=== PATIENT | female | born 1960 | race African-American/Black ===

== ENCOUNTER 2021-09-15 06:50 | Inpatient (IN) ==
[2021-09-12 12:00] LABS: Basophils % 0.5 % (0.0-0.8); Eosinophils # 0.1 10*3/uL (0.0-0.87); Eosinophils % 1.2 % (0.00-10.9); Hematocrit 38.7 VOL% (35.7-47.0); Hemoglobin 11.8 GM/DL (12.0-16.0); Immature Granulocytes % 0.6 %; Immature Granulocytes Absolute 0.05 #; Lymphocytes # 2.9 10*3/uL (1.4-4.0); Lymphocytes % 35.2 % (21.3-54.2); Mean Corpuscular HGB Conc 30.5 GM/DL (32-36); Mean Corpuscular Volume 92.4 FL (87-102); Mean Platelet Volume 11.9 FL (9.6-12.0); Monocytes # 0.5 10*3/uL (0.11-0.8); Monocytes % 5.6 % (1.7-12.7); Neutrophils % 56.9 % (38.7-73.9); Platelet Count 201 T/CUMM (130-400); Red Blood Count 4.19 MC/CUMM (3.8-5.5); Red Cell Distribution Width 13.3 % (9.3-17.3); White Blood Count 8.4 T/CUMM (4-12)
[2021-09-12 12:09] LABS: Albumin 3.7 G/DL (3.4-5.0); Bilirubin,Total 0.6 MG/DL (0.20-1.00); Potassium 3.4 MMOL/L (3.5-5.1); Total Protein 7.4 G/DL (6.4-8.2)
[2021-09-12 12:15] LABS: INR 1.3; PT Patient Result 13.8 SECS (10.5-12.0); Partial Thromboplastin Time 37.9 SECS (23.7-32.9)
[~2021-09-15 06:50] MED LIST: LACTATED RINGERS 1,000 ML IV SCH
[2021-09-15] MEDS ORDERED: FAMOTIDINE 20 MG TABLET PO ONE (07:17)
[2021-09-15] MEDS ORDERED: DIAZEPAM 5 MG TABLET PO ONE (07:17)
[2021-09-15] MEDS ORDERED: HEPARIN/NACL 0.9% 2 UNITS/ML 1,000 UNIT/500 ML BAG IV ONE (07:46)
[2021-09-15] MEDS ORDERED: propofoL 200 MG/20 ML VIAL IV ONE (07:51)
[2021-09-15] MEDS ORDERED: ROCURONIUM 50 MG/5 ML VIAL IV ONE ×2 (07:51→11:17)
[2021-09-15] MEDS ORDERED: DESFLURANE 1 UNIT/15 MINUTE INH ONE (07:51)
[2021-09-15] MEDS ORDERED: fentaNYL 100 MCG/2 ML VIAL ONE ×2 (07:51→09:26)
[2021-09-15] MEDS ORDERED: LIDOCAINE 2% 5 ML VIAL ONE (07:51)
[2021-09-15] MEDS ORDERED: ONDANSETRON 4 MG/2 ML VIAL ONE (07:51)
[2021-09-15] MEDS ORDERED: MIDAZOLAM 2 MG/2 ML VIAL ONE (07:51)
[2021-09-15 07:54] LABS: PT Patient Result 10.7 SECS (10.5-12.0)
[2021-09-15] MEDS ORDERED: DEXAMETHASONE 4 MG/1 ML VIAL ONE (08:11)
[2021-09-15] MEDS ORDERED: BUPIVACAINE MPF 0.5% /EPI 30 ML VIAL ONE (08:11)
[2021-09-15] MEDS ORDERED: HYDROCORTISONE 100 MG VIAL ONE (08:42)
[2021-09-15] MEDS ORDERED: GLYCOPYRROLATE 0.4 MG/2 ML VIAL ONE (09:29)
[2021-09-15] MEDS ORDERED: NEOSTIGMINE 10 MG/10 ML VIAL ONE (09:29)
[2021-09-15] MEDS ORDERED: SODIUM CHLORIDE 0.9% 1,000 ML IV PRN ×2 (10:39→12:32)
[2021-09-15] MEDS ORDERED: CALCIUM CHLORIDE 1,000 MG/10 ML VIAL IV ONE ×2 (10:45→11:02)
[2021-09-15] MEDS ORDERED: MICROFIBRILLAR COLLAGEN POWDER 1 GM CAN TOP ONE (10:49)
[2021-09-15] MEDS ORDERED: PHENYLEPHRINE 1 MG/10 ML SYRINGE IV ONE (11:01)
[2021-09-15] MEDS ORDERED: FUROSEMIDE 40 MG TABLET PO PRN (11:36)
[2021-09-15] MEDS ORDERED: METHOCARBAMOL 500 MG TABLET PO PRN (11:36)
[2021-09-15 12:04] LABS: Basophils # 0.1 10*3/uL (0.0-0.2); Basophils % 0.3 % (0.0-0.8); Eosinophils % 0.1 % (0.00-10.9); Hematocrit 32.9 VOL% (35.7-47.0); Hemoglobin 10.7 GM/DL (12.0-16.0); Immature Granulocytes % 0.8 %; Immature Granulocytes Absolute 0.18 #; Lymphocytes # 1.3 10*3/uL (1.4-4.0); Mean Corpuscular HGB Conc 32.5 GM/DL (32-36); Mean Corpuscular Volume 92.9 FL (87-102); Mean Platelet Volume 10.9 FL (9.6-12.0); Monocytes # 0.4 10*3/uL (0.11-0.8); Monocytes % 1.9 % (1.7-12.7); Neutrophils % 90.9 % (38.7-73.9); Platelet Count 132 T/CUMM (130-400); Red Blood Count 3.54 MC/CUMM (3.8-5.5); Red Cell Distribution Width 13.2 % (9.3-17.3); White Blood Count 22.5 T/CUMM (4-12)
[2021-09-15] MEDS: HYDROmorphone 1 MG/1 ML SYRINGE IV PRN ×5 (12:12→22:29)
[2021-09-15 12:16] LABS: Calcium 9.4 MG/DL (8.5-10.1); Osmolality,Calculated 301.4 MOS/KG (273-304); Potassium 3.8 MMOL/L (3.5-5.1)
[2021-09-15] MEDS ORDERED: PHENYLEPHRINE DRIP 40 MG/250 ML PREMIX IV PRN (12:20)
[2021-09-15] MEDS ORDERED: PHENYLEPHRINE DRIP 40 MG/250 ML PREMIX IV ONE (12:23)
[2021-09-15 12:43] LABS: Band Neutrophils 4 % (0-10); Lymphocytes 3 % (20-55); Total Cells Counted 100
[2021-09-15 12:44] LABS: Acanthocytes Few
[2021-09-15 12:45] LABS: Platelet Estimate Normal
[2021-09-15] MEDS ORDERED: DEXT 5% NACL 0.45% KCL 10 MEQ 10 MEQ/1,000 ML BAG IV SCH (13:00)
[2021-09-15 15:52] LABS: Hyaline Casts,Urine 5 /LPF (0-3); Mucus,Urine Occasional /LPF (Occasional); RBC,Urine 5 /HPF (0-4); Squamous Epithelial Cell,Urine Occasional /HPF (0-10)
[2021-09-15 15:55] LABS: Bilirubin,Urine Negative (Negative); Glucose,Urine (UA) 100 mg/dL (Negative); Ketones,Urine Negative (Negative); Nitrite,Urine Negative (Negative); Protein,Urine 100 mg/dL (Negative); Urine Appearance Clear (Clear); Urine Color Yellow (Yellow); Urine Specific Gravity 1.025 (1.001-1.035)
[2021-09-15 15:56] LABS: Blood, Urine Trace mg/dL (Negative); Urine Urobilinogen 0.2 eU/dL (<2.0)
[2021-09-15 17:58] LABS: Hemoglobin 15.3 GM/DL (12.0-16.0)
[2021-09-15] MEDS: AMITRIPTYLINE 50 MG TABLET PO SCH (20:48)
[2021-09-15] MEDS: BUDESONIDE/FORMOTEROL 80-4.5 INHALER 6.9 GM INH SCH (20:49)
[2021-09-15] MEDS ORDERED: GLUCAGON 1 MG VIAL IM PRN (21:18)
[2021-09-15] MEDS ORDERED: DEXTROSE 10% 250 ML BAG IV PRN (21:20)
[2021-09-15] MEDS: SODIUM CHLORIDE 0.45% 1,000 ML IV SCH (21:30)
[2021-09-15] MEDS: INSULIN REGULAR 100 UNIT/ML SUBCUT SCH (23:41)
[2021-09-16] MEDS: HYDROmorphone 1 MG/1 ML SYRINGE IV PRN ×4 (02:52→09:40)
[2021-09-16 05:13] LABS: Basophils % 0.2 % (0.0-0.8); Hematocrit 38.7 VOL% (35.7-47.0); Hemoglobin 12.8 GM/DL (12.0-16.0); Immature Granulocytes % 1.1 %; Immature Granulocytes Absolute 0.23 #; Lymphocytes # 2.3 10*3/uL (1.4-4.0); Lymphocytes % 11.1 % (21.3-54.2); Mean Corpuscular HGB Conc 33.1 GM/DL (32-36); Mean Corpuscular Volume 90.4 FL (87-102); Mean Platelet Volume 10.9 FL (9.6-12.0); Monocytes # 1.5 10*3/uL (0.11-0.8); Monocytes % 7.3 % (1.7-12.7); Neutrophils % 80.3 % (38.7-73.9); Platelet Count 119 T/CUMM (130-400); Red Blood Count 4.28 MC/CUMM (3.8-5.5); Red Cell Distribution Width 14.4 % (9.3-17.3)
[2021-09-16 05:20] LABS: PT Patient Result 10.6 SECS (10.5-12.0)
[2021-09-16 05:25] LABS: Calcium 8.3 MG/DL (8.5-10.1); Osmolality,Calculated 278.5 MOS/KG (273-304)
[2021-09-16 05:34] LABS: Lymphocytes 6 % (20-55); Total Cells Counted 100
[2021-09-16] MEDS: INSULIN REGULAR 100 UNIT/ML SUBCUT SCH ×3 (06:28→18:10)
[2021-09-16] MEDS: SODIUM CHLORIDE 0.45% 1,000 ML IV SCH ×2 (06:49→17:38)
[2021-09-16] MEDS ORDERED: GLUCAGON 1 MG VIAL IM PRN (07:08)
[2021-09-16] MEDS ORDERED: DEXTROSE 50% 25 GM/50 ML VIAL IV PRN (07:08)
[2021-09-16] MEDS ORDERED: lisinopriL 10 MG TABLET PO SCH (09:00)
[2021-09-16] MEDS: predniSONE 10 MG TABLET PO SCH (09:32)
[2021-09-16] MEDS: DOCUSATE SODIUM 100 MG CAPSULE PO SCH (09:32)
[2021-09-16] MEDS: BUDESONIDE/FORMOTEROL 80-4.5 INHALER 6.9 GM INH SCH ×2 (09:35→20:45)
[2021-09-16] MEDS ORDERED: NALOXONE 0.4 MG/ML VIAL IV PRN (09:58)
[2021-09-16] MEDS: HEPARIN DRIP 25,000 UNITS/500 ML PREMIX IV SCH (10:03)
[2021-09-16] MEDS: HYDROmorphone PCA 30 MG/30 ML SYRINGE IV SCH (10:58)
[2021-09-16] MEDS: AMITRIPTYLINE 50 MG TABLET PO SCH (20:45)
[2021-09-16] MEDS: WARFARIN 7.5 MG TABLET PO SCH (20:45)
[2021-09-17] MEDS: INSULIN REGULAR 100 UNIT/ML SUBCUT SCH ×4 (00:10→17:53)
[2021-09-17] MEDS: SODIUM CHLORIDE 0.45% 1,000 ML IV SCH (03:40)
[2021-09-17 06:12] LABS: PT Patient Result 10.8 SECS (10.5-12.0)
[2021-09-17] MEDS: predniSONE 10 MG TABLET PO SCH (09:07)
[2021-09-17] MEDS: DOCUSATE SODIUM 100 MG CAPSULE PO SCH (09:07)
[2021-09-17] MEDS: BUDESONIDE/FORMOTEROL 80-4.5 INHALER 6.9 GM INH SCH ×2 (09:07→21:25)
[2021-09-17] MEDS ORDERED: WARFARIN 2.5 MG TABLET PO ONE (09:20)
[2021-09-17] MEDS: carvediloL 3.125 MG TABLET PO SCH (10:08)
[2021-09-17] MEDS: HYDROmorphone PCA 30 MG/30 ML SYRINGE IV SCH (10:34)
[2021-09-17] MEDS ORDERED: MAGNESIUM HYDROXIDE SUSP 30 ML UDCUP PO PRN (11:33)
[2021-09-17] MEDS: metFORMIN 500 MG TABLET PO SCH ×2 (11:49→21:24)
[2021-09-17] MEDS: HEPARIN DRIP 25,000 UNITS/500 ML PREMIX IV SCH (11:50)
[2021-09-17] MEDS: WARFARIN 7.5 MG TABLET PO SCH (21:23)
[2021-09-17] MEDS: AMITRIPTYLINE 50 MG TABLET PO SCH (21:23)
[2021-09-18] MEDS: carvediloL 3.125 MG TABLET PO SCH (01:02)
[2021-09-18 04:39] LABS: Basophils % 0.2 % (0.0-0.8); Eosinophils # 0.1 10*3/uL (0.0-0.87); Eosinophils % 0.4 % (0.00-10.9); Hematocrit 32.2 VOL% (35.7-47.0); Hemoglobin 10.4 GM/DL (12.0-16.0); Immature Granulocytes % 0.9 %; Immature Granulocytes Absolute 0.11 #; Lymphocytes # 2.5 10*3/uL (1.4-4.0); Lymphocytes % 19.9 % (21.3-54.2); Mean Corpuscular HGB Conc 32.3 GM/DL (32-36); Mean Corpuscular Volume 92.8 FL (87-102); Mean Platelet Volume 12.4 FL (9.6-12.0); Monocytes % 7.8 % (1.7-12.7); Neutrophils % 70.8 % (38.7-73.9); Platelet Count 69 T/CUMM (130-400); Red Blood Count 3.47 MC/CUMM (3.8-5.5); White Blood Count 12.7 T/CUMM (4-12)
[2021-09-18 04:45] LABS: INR 1.5; PT Patient Result 16.2 SECS (10.5-12.0)
[2021-09-18 04:54] LABS: Calcium 8.4 MG/DL (8.5-10.1); Osmolality,Calculated 259.7 MOS/KG (273-304); Potassium 4.2 MMOL/L (3.5-5.1)
[2021-09-18 05:03] LABS: Platelet Estimate Decreased
[2021-09-18] MEDS: INSULIN REGULAR 100 UNIT/ML SUBCUT SCH ×4 (07:10→20:50)
[2021-09-18] MEDS ORDERED: WARFARIN 2.5 MG TABLET PO ONE (07:36)
[2021-09-18] MEDS ORDERED: MAGNESIUM SULF RIDER 4 GM/100 ML PREMIX IV ONE (08:44)
[2021-09-18] MEDS ORDERED: METOPROLOL TARTRATE 25 MG TABLET PO SCH (09:00)
[2021-09-18] MEDS: metFORMIN 500 MG TABLET PO SCH ×2 (09:11→20:56)
[2021-09-18] MEDS: predniSONE 10 MG TABLET PO SCH (09:11)
[2021-09-18] MEDS: DOCUSATE SODIUM 100 MG CAPSULE PO SCH (09:11)
[2021-09-18] MEDS: BUDESONIDE/FORMOTEROL 80-4.5 INHALER 6.9 GM INH SCH ×2 (09:19→21:30)
[2021-09-18] MEDS: HYDROmorphone PCA 30 MG/30 ML SYRINGE IV SCH (09:30)
[2021-09-18] MEDS ORDERED: AMIODARONE INJ 450 MG in DEXTROSE 5% 241 ML IV SCH (11:00)
[2021-09-18] MEDS: ASCORBIC ACID 500 MG TABLET PO SCH ×2 (12:27→20:56)
[2021-09-18 13:58] LABS: Bacteria,Urine Occasional /HPF (Few); Mucus,Urine Occasional /LPF (Occasional); RBC,Urine 2 /HPF (0-4)
[2021-09-18 13:59] LABS: Bilirubin,Urine Negative (Negative); Blood, Urine Negative (Negative); Glucose,Urine (UA) Negative (Negative); Ketones,Urine Negative (Negative); Nitrite,Urine Negative (Negative); Protein,Urine Negative (Negative); Urine Appearance Clear (Clear); Urine Color Yellow (Yellow); Urine Urobilinogen 0.2 eU/dL (<2.0); Urine pH 5.5 (4.5-8.0)
[2021-09-18] MEDS: HEPARIN DRIP 25,000 UNITS/500 ML PREMIX IV SCH (15:05)
[2021-09-18] MEDS: AMIODARONE INJ 450 MG in DEXTROSE 5% 241 ML IV SCH (17:46)
[2021-09-18] MEDS: WARFARIN 7.5 MG TABLET PO SCH (20:56)
[2021-09-18] MEDS: AMITRIPTYLINE 50 MG TABLET PO SCH (20:56)
[2021-09-19 05:04] LABS: Basophils % 0.3 % (0.0-0.8); Eosinophils # 0.1 10*3/uL (0.0-0.87); Eosinophils % 0.7 % (0.00-10.9); Hematocrit 25.6 VOL% (35.7-47.0); Hemoglobin 8.3 GM/DL (12.0-16.0); Immature Granulocytes % 0.8 %; Immature Granulocytes Absolute 0.09 #; Lymphocytes # 2.2 10*3/uL (1.4-4.0); Lymphocytes % 20.8 % (21.3-54.2); Mean Corpuscular HGB Conc 32.4 GM/DL (32-36); Mean Corpuscular Volume 92.4 FL (87-102); Mean Platelet Volume 11.9 FL (9.6-12.0); Monocytes # 0.8 10*3/uL (0.11-0.8); Monocytes % 7.6 % (1.7-12.7); Neutrophils % 69.8 % (38.7-73.9); Platelet Count 122 T/CUMM (130-400); Red Blood Count 2.77 MC/CUMM (3.8-5.5); Red Cell Distribution Width 13.7 % (9.3-17.3); White Blood Count 10.7 T/CUMM (4-12)
[2021-09-19 05:15] LABS: INR 2.2
[2021-09-19 05:25] LABS: Calcium 8.5 MG/DL (8.5-10.1); Potassium 3.7 MMOL/L (3.5-5.1)
[2021-09-19] MEDS: INSULIN REGULAR 100 UNIT/ML SUBCUT SCH ×4 (07:58→22:43)
[2021-09-19] MEDS: DOCUSATE SODIUM 100 MG CAPSULE PO SCH (08:38)
[2021-09-19] MEDS: METOPROLOL TARTRATE 25 MG TABLET PO SCH ×2 (08:38→21:35)
[2021-09-19] MEDS: predniSONE 10 MG TABLET PO SCH (08:38)
[2021-09-19] MEDS: ASCORBIC ACID 500 MG TABLET PO SCH ×2 (08:38→21:34)
[2021-09-19] MEDS: metFORMIN 500 MG TABLET PO SCH ×2 (08:38→21:34)
[2021-09-19] MEDS: BUDESONIDE/FORMOTEROL 80-4.5 INHALER 6.9 GM INH SCH ×2 (08:48→22:40)
[2021-09-19] MEDS: AMIODARONE INJ 450 MG in DEXTROSE 5% 241 ML IV SCH (09:33)
[2021-09-19] MEDS: HYDROmorphone PCA 30 MG/30 ML SYRINGE IV SCH (10:21)
[2021-09-19] MEDS ORDERED: WARFARIN 5 MG TABLET PO ONE (21:00)
[2021-09-19] MEDS: AMITRIPTYLINE 50 MG TABLET PO SCH (21:34)
[2021-09-20 06:17] LABS: Basophils % 0.3 % (0.0-0.8); Eosinophils # 0.1 10*3/uL (0.0-0.87); Eosinophils % 1.3 % (0.00-10.9); Hematocrit 26.2 VOL% (35.7-47.0); Hemoglobin 8.5 GM/DL (12.0-16.0); Immature Granulocytes % 1.1 %; Lymphocytes # 2.4 10*3/uL (1.4-4.0); Mean Corpuscular HGB Conc 32.4 GM/DL (32-36); Mean Corpuscular Volume 92.6 FL (87-102); Mean Platelet Volume 11.5 FL (9.6-12.0); Monocytes # 0.7 10*3/uL (0.11-0.8); Monocytes % 7.6 % (1.7-12.7); Neutrophils % 64.7 % (38.7-73.9); Platelet Count 173 T/CUMM (130-400); Red Blood Count 2.83 MC/CUMM (3.8-5.5); Red Cell Distribution Width 13.6 % (9.3-17.3); White Blood Count 9.4 T/CUMM (4-12)
[2021-09-20] MEDS: INSULIN REGULAR 100 UNIT/ML SUBCUT SCH ×4 (07:27→21:23)
[2021-09-20] MEDS: metFORMIN 500 MG TABLET PO SCH ×2 (09:01→21:21)
[2021-09-20] MEDS: predniSONE 10 MG TABLET PO SCH (09:02)
[2021-09-20] MEDS: BUDESONIDE/FORMOTEROL 80-4.5 INHALER 6.9 GM INH SCH ×2 (09:02→21:21)
[2021-09-20] MEDS: DOCUSATE SODIUM 100 MG CAPSULE PO SCH (09:02)
[2021-09-20] MEDS: METOPROLOL TARTRATE 25 MG TABLET PO SCH ×2 (09:02→21:21)
[2021-09-20] MEDS: ASCORBIC ACID 500 MG TABLET PO SCH ×2 (09:02→21:21)
[2021-09-20] MEDS: HYDROmorphone PCA 30 MG/30 ML SYRINGE IV SCH (09:15)
[2021-09-20 09:40] LABS: INR 2.6; PT Patient Result 26.7 SECS (10.5-12.0)
[2021-09-20] MEDS: HYDROmorphone 1 MG/1 ML SYRINGE IV PRN ×2 (14:23→18:16)
[2021-09-20] MEDS: ALBUTEROL/IPRATROPIUM 3 ML NEB RESP TX SCH ×3 (14:45→23:30)
[2021-09-20] MEDS: WARFARIN 7.5 MG TABLET PO SCH (21:21)
[2021-09-20] MEDS: AMITRIPTYLINE 50 MG TABLET PO SCH (21:21)
[2021-09-21] MEDS: ALBUTEROL/IPRATROPIUM 3 ML NEB RESP TX SCH ×6 (03:20→23:54)
[2021-09-21] MEDS: HYDROmorphone 1 MG/1 ML SYRINGE IV PRN ×3 (04:50→21:48)
[2021-09-21 05:54] LABS: INR 2.4
[2021-09-21] MEDS: predniSONE 10 MG TABLET PO SCH (08:44)
[2021-09-21] MEDS: metFORMIN 500 MG TABLET PO SCH ×2 (08:44→21:34)
[2021-09-21] MEDS: ASCORBIC ACID 500 MG TABLET PO SCH ×2 (08:45→21:34)
[2021-09-21] MEDS: DOCUSATE SODIUM 100 MG CAPSULE PO SCH (08:45)
[2021-09-21] MEDS: INSULIN REGULAR 100 UNIT/ML SUBCUT SCH ×4 (08:45→21:48)
[2021-09-21] MEDS: METOPROLOL TARTRATE 25 MG TABLET PO SCH ×2 (08:45→21:34)
[2021-09-21] MEDS: BUDESONIDE/FORMOTEROL 80-4.5 INHALER 6.9 GM INH SCH ×2 (08:46→21:38)
[2021-09-21] MEDS: ALPRAZolam 0.5 MG TABLET PO PRN (14:15)
[2021-09-21] MEDS: WARFARIN 7.5 MG TABLET PO SCH (21:34)
[2021-09-21] MEDS: AMITRIPTYLINE 50 MG TABLET PO SCH (21:35)
[2021-09-22] MEDS: ALBUTEROL/IPRATROPIUM 3 ML NEB RESP TX SCH ×6 (03:13→23:55)
[2021-09-22] MEDS: HYDROmorphone 1 MG/1 ML SYRINGE IV PRN ×4 (03:16→17:20)
[2021-09-22 07:01] LABS: INR 2.6; PT Patient Result 26.5 SECS (10.5-12.0)
[2021-09-22] MEDS: INSULIN REGULAR 100 UNIT/ML SUBCUT SCH ×4 (08:43→20:40)
[2021-09-22] MEDS: METOPROLOL TARTRATE 25 MG TABLET PO SCH ×2 (09:34→20:29)
[2021-09-22] MEDS: predniSONE 10 MG TABLET PO SCH (09:34)
[2021-09-22] MEDS: DOCUSATE SODIUM 100 MG CAPSULE PO SCH (09:34)
[2021-09-22] MEDS: BUDESONIDE/FORMOTEROL 80-4.5 INHALER 6.9 GM INH SCH ×2 (09:34→20:30)
[2021-09-22] MEDS: metFORMIN 500 MG TABLET PO SCH ×2 (09:34→17:22)
[2021-09-22] MEDS: ASCORBIC ACID 500 MG TABLET PO SCH ×2 (09:35→20:30)
[2021-09-22] MEDS: WARFARIN 7.5 MG TABLET PO SCH (20:29)
[2021-09-22] MEDS: AMITRIPTYLINE 50 MG TABLET PO SCH (20:30)
[2021-09-22] MEDS: ALPRAZolam 0.5 MG TABLET PO PRN (20:50)
[2021-09-23] MEDS: HYDROmorphone 1 MG/1 ML SYRINGE IV PRN ×4 (02:47→20:43)
[2021-09-23] MEDS: ALBUTEROL/IPRATROPIUM 3 ML NEB RESP TX SCH ×5 (03:50→19:35)
[2021-09-23 05:39] LABS: INR 2.8; PT Patient Result 28.4 SECS (10.5-12.0)
[2021-09-23] MEDS: METOPROLOL TARTRATE 25 MG TABLET PO SCH ×2 (08:49→20:33)
[2021-09-23] MEDS: predniSONE 10 MG TABLET PO SCH (08:49)
[2021-09-23] MEDS: DOCUSATE SODIUM 100 MG CAPSULE PO SCH (08:49)
[2021-09-23] MEDS: metFORMIN 500 MG TABLET PO SCH ×2 (08:49→17:34)
[2021-09-23] MEDS: ASCORBIC ACID 500 MG TABLET PO SCH ×2 (08:49→20:41)
[2021-09-23] MEDS: BUDESONIDE/FORMOTEROL 80-4.5 INHALER 6.9 GM INH SCH ×2 (08:51→20:42)
[2021-09-23] MEDS: INSULIN REGULAR 100 UNIT/ML SUBCUT SCH ×4 (08:57→20:34)
[2021-09-23] MEDS: WARFARIN 7.5 MG TABLET PO SCH (20:41)
[2021-09-23] MEDS: AMITRIPTYLINE 50 MG TABLET PO SCH (20:42)
[2021-09-23] MEDS: ALPRAZolam 0.5 MG TABLET PO PRN (20:48)
[2021-09-24] MEDS: ALBUTEROL/IPRATROPIUM 3 ML NEB RESP TX SCH ×6 (00:30→19:30)
[2021-09-24 06:18] LABS: INR 3.2; PT Patient Result 32.9 SECS (10.5-12.0)
[2021-09-24] MEDS: INSULIN REGULAR 100 UNIT/ML SUBCUT SCH ×4 (08:00→21:13)
[2021-09-24] MEDS: HYDROmorphone 1 MG/1 ML SYRINGE IV PRN ×2 (08:04→21:24)
[2021-09-24] MEDS: METOPROLOL TARTRATE 25 MG TABLET PO SCH ×2 (08:06→21:14)
[2021-09-24] MEDS: metFORMIN 500 MG TABLET PO SCH ×2 (08:06→16:07)
[2021-09-24] MEDS: DOCUSATE SODIUM 100 MG CAPSULE PO SCH (08:06)
[2021-09-24] MEDS: predniSONE 10 MG TABLET PO SCH (08:07)
[2021-09-24] MEDS: ASCORBIC ACID 500 MG TABLET PO SCH ×2 (08:07→21:14)
[2021-09-24] MEDS: BUDESONIDE/FORMOTEROL 80-4.5 INHALER 6.9 GM INH SCH ×2 (08:08→21:14)
[2021-09-24] MEDS ORDERED: WARFARIN 5 MG TABLET PO SCH (21:00)
[2021-09-24] MEDS: AMITRIPTYLINE 50 MG TABLET PO SCH (21:14)
[2021-09-24] MEDS: ALPRAZolam 0.5 MG TABLET PO PRN (23:26)
[2021-09-25] MEDS: ALBUTEROL/IPRATROPIUM 3 ML NEB RESP TX SCH ×4 (00:20→10:39)
[2021-09-25] MEDS: HYDROmorphone 1 MG/1 ML SYRINGE IV PRN ×2 (04:39→10:35)
[2021-09-25 06:50] LABS: INR 2.5; PT Patient Result 25.7 SECS (10.5-12.0)
[2021-09-25] MEDS: INSULIN REGULAR 100 UNIT/ML SUBCUT SCH (08:15)
[2021-09-25] MEDS: DOCUSATE SODIUM 100 MG CAPSULE PO SCH (09:52)
[2021-09-25] MEDS: metFORMIN 500 MG TABLET PO SCH (09:52)
[2021-09-25] MEDS: ASCORBIC ACID 500 MG TABLET PO SCH (09:52)
[2021-09-25] MEDS: BUDESONIDE/FORMOTEROL 80-4.5 INHALER 6.9 GM INH SCH (09:53)
[2021-09-25] MEDS: predniSONE 10 MG TABLET PO SCH (09:53)
[2021-09-25] MEDS: METOPROLOL TARTRATE 25 MG TABLET PO SCH (09:53)
[2021-09-25 12:05] VITALS: BP 108/57
== END 2021-09-25 12:50 | disposition home or self-care (01) | DRG 121 ==
LOC: N.OR 06:50 → N.SDSINP 06:50 → N.ICU 11:31 → N.3E 09-19 15:57
PROVIDERS: ADMIT Surgery; ATTEND Surgery

== ENCOUNTER 2022-04-11 10:29 | Inpatient (IN) ==
[2022-04-11] MEDS ORDERED: HYDROmorphone 1 MG/1 ML SYRINGE IV STA (11:36)
[2022-04-11] MEDS ORDERED: ONDANSETRON 4 MG/2 ML VIAL IV STA (11:37)
[2022-04-11 12:21] LABS: Basophils % 0.5 % (0.0-0.8); Eosinophils # 0.1 10*3/uL (0.0-0.87); Eosinophils % 1.5 % (0.00-10.9); Hematocrit 30.4 VOL% (35.7-47.0); Hemoglobin 9.5 GM/DL (12.0-16.0); Immature Granulocytes % 0.4 %; Immature Granulocytes Absolute 0.03 #; Lymphocytes # 2.2 10*3/uL (1.4-4.0); Lymphocytes % 29.9 % (21.3-54.2); Mean Corpuscular HGB Conc 31.3 GM/DL (32-36); Mean Corpuscular Volume 92.4 FL (87-102); Mean Platelet Volume 10.3 FL (9.6-12.0); Monocytes # 0.4 10*3/uL (0.11-0.8); Monocytes % 5.3 % (1.7-12.7); Neutrophils % 62.4 % (38.7-73.9); Platelet Count 177 T/CUMM (130-400); Red Blood Count 3.29 MC/CUMM (3.8-5.5); White Blood Count 7.4 T/CUMM (4-12)
[2022-04-11 12:31] LABS: PT Patient Result 20.9 SECS (10.1-12.1)
[2022-04-11 12:49] LABS: Calcium 8.5 MG/DL (8.5-10.1); Osmolality,Calculated 280.3 MOS/KG (273-304); Potassium 3.4 MMOL/L (3.5-5.1)
[2022-04-11 13:25] LABS: Sedimentation Rate-Westergren 64 MM/HR (0-30)
[2022-04-11] MEDS ORDERED: ONDANSETRON 4 MG/2 ML VIAL IV PRN (14:19)
[2022-04-11] MEDS ORDERED: DEXTROSE 10% 250 ML BAG IV PRN (14:19)
[2022-04-11] MEDS ORDERED: GLUCAGON 1 MG VIAL IM PRN (14:19)
[2022-04-11] MEDS ORDERED: ACETAMINOPHEN/CODEINE 300-30 MG TABLET PO PRN (14:53)
[2022-04-11] MEDS: MORPHINE 2 MG/1 ML SYRINGE IV PRN (15:31)
[2022-04-11] MEDS ORDERED: POTASSIUM CHLORIDE 20 MEQ TABLET PO ONE (15:45)
[2022-04-11] MEDS ORDERED: POTASSIUM CHLORIDE 20 MEQ TABLET PO PRN (15:45)
[2022-04-11] MEDS ORDERED: BUDESONIDE/FORMOTEROL 80-4.5 INHALER 6.9 GM INH PRN (15:46)
[2022-04-11] MEDS ORDERED: predniSONE 5 MG TABLET PO PRN (15:46)
[2022-04-11] MEDS ORDERED: DOCUSATE SODIUM 100 MG CAPSULE PO PRN (15:46)
[2022-04-11] MEDS ORDERED: ALPRAZolam 0.5 MG TABLET PO PRN (15:46)
[2022-04-11] MEDS: ASPIRIN EC 325 MG TABLET PO SCH (16:40)
[2022-04-11] MEDS: INSULIN LISPRO 100 UNIT/ML SUBCUT SCH ×2 (16:45→20:24)
[2022-04-11] MEDS: oxyCODONE/ACETAMINOPHEN 5-325 MG TABLET PO PRN (19:55)
[2022-04-11] MEDS: AMITRIPTYLINE 50 MG TABLET PO SCH (20:22)
[2022-04-11] MEDS: LOSARTAN 25 MG TABLET PO SCH (20:22)
[2022-04-11] MEDS: metFORMIN 500 MG TABLET PO SCH (20:22)
[2022-04-11] MEDS: ATORVASTATIN 80 MG TABLET PO SCH (20:22)
[2022-04-12] MEDS: oxyCODONE/ACETAMINOPHEN 5-325 MG TABLET PO PRN (05:35)
[2022-04-12 06:07] LABS: Basophils % 0.7 % (0.0-0.8); Eosinophils # 0.1 10*3/uL (0.0-0.87); Eosinophils % 1.2 % (0.00-10.9); Hematocrit 29.4 VOL% (35.7-47.0); Hemoglobin 8.9 GM/DL (12.0-16.0); Immature Granulocytes % 0.5 %; Immature Granulocytes Absolute 0.03 #; Lymphocytes # 2.2 10*3/uL (1.4-4.0); Lymphocytes % 36.3 % (21.3-54.2); Mean Corpuscular HGB Conc 30.3 GM/DL (32-36); Mean Corpuscular Volume 94.8 FL (87-102); Mean Platelet Volume 10.5 FL (9.6-12.0); Monocytes # 0.3 10*3/uL (0.11-0.8); Monocytes % 5.1 % (1.7-12.7); Neutrophils % 56.2 % (38.7-73.9); Platelet Count 162 T/CUMM (130-400); Red Cell Distribution Width 15.2 % (9.3-17.3); White Blood Count 6.08 T/CUMM (4-12)
[2022-04-12 06:25] LABS: INR 1.9; PT Patient Result 19.7 SECS (10.1-12.1)
[2022-04-12 06:28] LABS: Calcium 8.6 MG/DL (8.5-10.1); Osmolality,Calculated 289.6 MOS/KG (273-304); Potassium 3.9 MMOL/L (3.5-5.1)
[2022-04-12 06:37] LABS: 25 Hydroxy Vitamin D Total 11.3 NG/ML (30-100)
[2022-04-12 06:38] LABS: % Iron Saturation 31.9 % (18-50); Ferritin 94.8 ng/mL (8-252)
[2022-04-12 07:00] LABS: Risk Ratio 2.6; Thyroid Stimulating Hormone 0.861 uIU/ml (0.358-3.74)
[2022-04-12] MEDS: INSULIN LISPRO 100 UNIT/ML SUBCUT SCH ×4 (07:05→21:07)
[2022-04-12] MEDS ORDERED: MAGNESIUM SULF RIDER 2 GM/50 ML PREMIX IV ONE (07:21)
[2022-04-12] MEDS ORDERED: ENOXAPARIN 80 MG/0.8 ML SYRINGE SUBCUT SCH (09:00)
[2022-04-12] MEDS: ASPIRIN EC 325 MG TABLET PO SCH (09:07)
[2022-04-12] MEDS: PANTOPRAZOLE 40 MG TABLET PO SCH (09:07)
[2022-04-12] MEDS: metFORMIN 500 MG TABLET PO SCH ×2 (09:08→20:24)
[2022-04-12] MEDS ORDERED: ERGOCALCIFEROL 50,000 UNIT CAPSULE PO SCH (09:30)
[2022-04-12] MEDS: MORPHINE 2 MG/1 ML SYRINGE IV PRN ×2 (12:38→19:37)
[2022-04-12] MEDS ORDERED: WARFARIN 10 MG TABLET PO SCH (18:00)
[2022-04-12] MEDS ORDERED: WARFARIN 2 MG TABLET PO ONE (18:00)
[2022-04-12] MEDS: AMITRIPTYLINE 50 MG TABLET PO SCH (20:24)
[2022-04-12] MEDS: LOSARTAN 25 MG TABLET PO SCH (20:24)
[2022-04-12] MEDS: ATORVASTATIN 80 MG TABLET PO SCH (20:24)
[2022-04-13] MEDS: oxyCODONE/ACETAMINOPHEN 5-325 MG TABLET PO PRN ×2 (01:33→10:12)
[2022-04-13] MEDS: MORPHINE 2 MG/1 ML SYRINGE IV PRN ×3 (04:16→21:10)
[2022-04-13 05:53] LABS: Basophils % 0.5 % (0.0-0.8); Eosinophils # 0.1 10*3/uL (0.0-0.87); Eosinophils % 1.2 % (0.00-10.9); Hematocrit 30.1 VOL% (35.7-47.0); Hemoglobin 9.2 GM/DL (12.0-16.0); Immature Granulocytes % 0.5 %; Immature Granulocytes Absolute 0.04 #; Lymphocytes # 2.2 10*3/uL (1.4-4.0); Lymphocytes % 29.5 % (21.3-54.2); Mean Corpuscular HGB Conc 30.6 GM/DL (32-36); Mean Corpuscular Volume 94.4 FL (87-102); Mean Platelet Volume 10.6 FL (9.6-12.0); Monocytes # 0.4 10*3/uL (0.11-0.8); Monocytes % 5.3 % (1.7-12.7); Platelet Count 167 T/CUMM (130-400); Red Blood Count 3.19 MC/CUMM (3.8-5.5); Red Cell Distribution Width 14.9 % (9.3-17.3); White Blood Count 7.39 T/CUMM (4-12)
[2022-04-13 06:03] LABS: INR 1.5; PT Patient Result 16.2 SECS (10.1-12.1)
[2022-04-13 06:04] LABS: Calcium 8.6 MG/DL (8.5-10.1); Osmolality,Calculated 284.1 MOS/KG (273-304); Potassium 3.9 MMOL/L (3.5-5.1)
[2022-04-13 06:09] LABS: % Iron Saturation 15.4 % (18-50); Ferritin 116.3 ng/mL (8-252)
[2022-04-13] MEDS: INSULIN LISPRO 100 UNIT/ML SUBCUT SCH ×4 (08:12→21:10)
[2022-04-13] MEDS: ASPIRIN EC 325 MG TABLET PO SCH (09:07)
[2022-04-13] MEDS: metFORMIN 500 MG TABLET PO SCH (09:07)
[2022-04-13] MEDS: PANTOPRAZOLE 40 MG TABLET PO SCH (09:07)
[2022-04-13] MEDS: ENOXAPARIN 80 MG/0.8 ML SYRINGE SUBCUT SCH ×2 (09:14→21:09)
[2022-04-13] MEDS ORDERED: ALBUTEROL/IPRATROPIUM 3 ML NEB RESP TX PRN (10:52)
[2022-04-13] MEDS ORDERED: MAGNESIUM SULF RIDER 2 GM/50 ML PREMIX IV ONE (11:00)
[2022-04-13] MEDS: BUDESONIDE/FORMOTEROL 80-4.5 INHALER 6.9 GM INH SCH ×2 (11:48→21:30)
[2022-04-13] MEDS: WARFARIN 4 MG TABLET PO SCH (17:48)
[2022-04-13] MEDS: LOSARTAN 25 MG TABLET PO SCH (21:09)
[2022-04-13] MEDS: ATORVASTATIN 80 MG TABLET PO SCH (21:09)
[2022-04-13] MEDS: AMITRIPTYLINE 50 MG TABLET PO SCH (21:09)
[2022-04-14] MEDS: MORPHINE 2 MG/1 ML SYRINGE IV PRN ×3 (04:43→23:53)
[2022-04-14 06:06] LABS: Basophils % 0.4 % (0.0-0.8); Eosinophils # 0.1 10*3/uL (0.0-0.87); Eosinophils % 1.2 % (0.00-10.9); Hematocrit 29.6 VOL% (35.7-47.0); Hemoglobin 9.1 GM/DL (12.0-16.0); Immature Granulocytes % 0.4 %; Immature Granulocytes Absolute 0.03 #; Lymphocytes % 26.1 % (21.3-54.2); Mean Corpuscular HGB Conc 30.7 GM/DL (32-36); Mean Corpuscular Volume 95.8 FL (87-102); Mean Platelet Volume 10.3 FL (9.6-12.0); Monocytes # 0.4 10*3/uL (0.11-0.8); Monocytes % 4.5 % (1.7-12.7); Neutrophils % 67.4 % (38.7-73.9); Platelet Count 161 T/CUMM (130-400); Red Blood Count 3.09 MC/CUMM (3.8-5.5); Red Cell Distribution Width 14.9 % (9.3-17.3); White Blood Count 7.71 T/CUMM (4-12)
[2022-04-14 06:19] LABS: INR 2.1; PT Patient Result 21.8 SECS (10.1-12.1)
[2022-04-14 06:25] LABS: Calcium 8.7 MG/DL (8.5-10.1); Osmolality,Calculated 283.1 MOS/KG (273-304); Potassium 3.9 MMOL/L (3.5-5.1)
[2022-04-14] MEDS: INSULIN LISPRO 100 UNIT/ML SUBCUT SCH ×4 (07:36→21:27)
[2022-04-14] MEDS ORDERED: MAGNESIUM OXIDE 400 MG TABLET PO ONE (07:55)
[2022-04-14] MEDS: ASPIRIN EC 325 MG TABLET PO SCH (09:11)
[2022-04-14] MEDS: PANTOPRAZOLE 40 MG TABLET PO SCH (09:11)
[2022-04-14] MEDS: BUDESONIDE/FORMOTEROL 80-4.5 INHALER 6.9 GM INH SCH ×2 (09:12→21:26)
[2022-04-14] MEDS ORDERED: FERRIC GLUCONATE COMPLEX 125 MG in SODIUM CHLORIDE 0.9% 100 ML IV ONE (11:00)
[2022-04-14] MEDS: oxyCODONE/ACETAMINOPHEN 5-325 MG TABLET PO PRN (11:21)
[2022-04-14] MEDS: BUTALBITAL/ACETAMIN/CAFFEINE 50-325-40 MG TABLET PO PRN ×3 (13:27→21:26)
[2022-04-14] MEDS: WARFARIN 4 MG TABLET PO SCH (17:30)
[2022-04-14] MEDS ORDERED: diphenhydrAMINE 50 MG/1 ML VIAL IV ONE (21:01)
[2022-04-14] MEDS: LOSARTAN 25 MG TABLET PO SCH (21:26)
[2022-04-14] MEDS: AMITRIPTYLINE 50 MG TABLET PO SCH (21:26)
[2022-04-14] MEDS: ATORVASTATIN 80 MG TABLET PO SCH (21:26)
[2022-04-15 05:18] LABS: Basophils % 0.5 % (0.0-0.8); Eosinophils # 0.1 10*3/uL (0.0-0.87); Eosinophils % 1.9 % (0.00-10.9); Hematocrit 29.5 VOL% (35.7-47.0); Hemoglobin 8.8 GM/DL (12.0-16.0); Immature Granulocytes % 0.3 %; Immature Granulocytes Absolute 0.02 #; Lymphocytes # 2.1 10*3/uL (1.4-4.0); Lymphocytes % 34.1 % (21.3-54.2); Mean Corpuscular HGB Conc 29.8 GM/DL (32-36); Mean Corpuscular Volume 96.1 FL (87-102); Mean Platelet Volume 10.7 FL (9.6-12.0); Monocytes # 0.4 10*3/uL (0.11-0.8); Monocytes % 5.6 % (1.7-12.7); Neutrophils % 57.6 % (38.7-73.9); Platelet Count 172 T/CUMM (130-400); Red Blood Count 3.07 MC/CUMM (3.8-5.5); Red Cell Distribution Width 15.1 % (9.3-17.3); White Blood Count 6.21 T/CUMM (4-12)
[2022-04-15 05:24] LABS: INR 2.7; PT Patient Result 27.4 SECS (10.1-12.1)
[2022-04-15 05:35] LABS: Calcium 9.1 MG/DL (8.5-10.1)
[2022-04-15] MEDS ORDERED: MAGNESIUM SULF RIDER 2 GM/50 ML PREMIX IV ONE (08:11)
[2022-04-15] MEDS: INSULIN LISPRO 100 UNIT/ML SUBCUT SCH (08:59)
[2022-04-15] MEDS: PANTOPRAZOLE 40 MG TABLET PO SCH (09:43)
[2022-04-15] MEDS: BUTALBITAL/ACETAMIN/CAFFEINE 50-325-40 MG TABLET PO PRN (09:43)
[2022-04-15] MEDS: ASPIRIN EC 325 MG TABLET PO SCH (09:43)
[2022-04-15 12:08] VITALS: BP 108/58
== END 2022-04-15 12:00 | disposition home or self-care (01) | DRG 45 ==
LOC: N.ED 10:29 → N.EDINP 14:18 → SUATTDRO 14:18 → N.2E 15:59
PROVIDERS: ADMIT Family Medicine; ATTEND Hospitalist